=== PATIENT | female | born 1950 | race American Indian/Alaskan Native ===

== ENCOUNTER 2020-04-07 10:34 | Emergency (ER) | payer BC, OTHER ==
--- NOTE | 2020-04-07 10:57 | EDM.PDOC ---
ED HPI GENERAL MEDICAL PROBLEM - General Stated Complaint: AMBULANCE Time Seen by Provider: 04/07/20 10:45 Source of Information: Reports: Patient History Limitations: Reports: No Limitations - History of Present Illness INITIAL COMMENTS - FREE TEXT/NARRATIVE: This 69 yo female patient was brought to the ED by [facility] due to a blood sugar level of 29. EMS reports the patient was initially combative, but was coming around after she was given D10. The patient reports she has been having diarrhea every day for the past 40 days. The patient reports she has further testing starting next week (colonoscopy, EGD, MRI). The patient reports she has been taking her medications as directed. The patient reports she has not had any recent changes in her medications (including Levemir). The patient reports she has been eating and drinking normally. Onset: Today Duration: Minutes:, Resolved Prior to Arrival Location: Reports: Generalized Quality: Reports: Other Severity: Moderate Improves with: Reports: Medication (D10 provided by EMS) Worsens with: Reports: None Context: Reports: Other Associated Symptoms: Reports: No Other Symptoms - Related Data Allergies Allergy/AdvReac Type Severity Reaction Status Date / Time No Known Allergies Allergy Verified 04/07/20 11:13 Home Meds: Home Meds ALPRAZolam [Alprazolam] 0.5 mg PO BID 07/29/19 [History] Alogliptin Benzoate [Alogliptin] 12.5 mg PO DAILY 07/29/19 [History] Aspirin [Halfprin] 81 mg PO DAILY 07/29/19 [History] Fenofibric Acid (Choline) [Fenofibric Acid] 135 mg PO DAILY 07/29/19 [History] Ferrous Gluconate 324 mg PO DAILY 07/29/19 [History] Insulin Detemir [Levemir Flextouch] 25 unit SQ BEDTIME 07/29/19 [History] Labetalol HCl [Labetalol] 100 mg PO BID 07/29/19 [History] Levothyroxine 37.5 mcg PO DAILY 07/29/19 [History] Losartan Potassium 100 mg PO DAILY 07/29/19 [History] Magnesium Oxide 400 mg PO BID 07/29/19 [History] Multivitamin with Minerals [Multiple Vitamin] 1 each PO DAILY 07/29/19 [History] Pioglitazone HCl 15 mg PO DAILY 07/29/19 [History] Potassium Chloride 10 meq PO DAILY 07/29/19 [History] amLODIPine Besylate [Amlodipine Besylate] 10 mg PO DAILY 07/29/19 [History] atorvaSTATin Calcium [Atorvastatin Calcium] 20 mg PO DAILY 07/29/19 [History] cloNIDine HCL [Catapres] 0.1 mg PO BID 07/29/19 [History] hydroCHLOROthiazide [Hydrochlorothiazide] 25 mg PO BID 07/29/19 [History] Past Medical History HEENT History: Reports: Cataract, Other (See Below) Other HEENT History: hypermetropia, presbyopia Gastrointestinal History: Reports: Other (See Below) Other Gastrointestinal History: Occult blood in stool Genitourinary History: Reports: Chronic Renal Insuffiency, Renal Disease Psychiatric History: Reports: Anxiety Endocrine/Metabolic History: Reports: Diabetes, Type II Hematologic History: Reports: Anemia Immunologic History: Reports: None - Infectious Disease History Infectious Disease History: Reports: Chicken Pox, Measles, Mumps Social & Family History - Family History Family Medical History: Noncontributory - Caffeine Use Caffeine Use: Reports: Coffee ED ROS GENERAL - Review of Systems Review Of Systems: Comprehensive ROS is negative, except as noted in HPI. ED EXAM GENERAL NO PERIP PULSE - Physical Exam Exam: See Below Exam Limited By: No Limitations General Appearance: Alert, WD/WN, No Apparent Distress Eye Exam: Bilateral Eye: EOMI, Normal Inspection, PERRL Ears: Normal External Exam, Normal Canal, Hearing Grossly Normal, Normal TMs Nose: Normal Inspection, Normal Mucosa, No Blood Throat/Mouth: Normal Inspection, Normal Lips, Normal Teeth, Normal Gums, Normal Oropharynx, Normal Voice, No Airway Compromise Head: Atraumatic, Normocephalic Neck: Normal Inspection, Supple, Non-Tender, Full Range of Motion Respiratory/Chest: No Respiratory Distress, Lungs Clear, Normal Breath Sounds, No Accessory Muscle Use, Chest Non-Tender Cardiovascular: Normal Peripheral Pulses, Regular Rate, Rhythm, No Edema, No Gallop, No JVD, No Murmur, No Rub GI/Abdominal: Normal Bowel Sounds, Soft, Non-Tender, No Organomegaly, No Distention, No Abnormal Bruit, No Mass (Female) Exam: Deferred Rectal (Female) Exam: Deferred Back Exam: Normal Inspection, Full Range of Motion, NT Extremities: Normal Inspection, Normal Range of Motion, Non-Tender, Normal Capillary Refill, No Pedal Edema Neurological: Alert, Oriented, CN II-XII Intact, Normal Cognition, Normal Gait, Normal Reflexes, No Motor/Sensory Deficits Psychiatric: Normal Affect, Normal Mood Skin Exam: Warm, Dry, Intact, Normal Color, No Rash Lymphatic: No Adenopathy Course - Vital Signs Last Recorded V/S: Last Vital Signs Temp 35.0 C L 04/07/20 12:13 Pulse 56 L 04/07/20 12:13 Resp 17 04/07/20 12:13 BP 143/53 H 04/07/20 12:13 Pulse Ox 100 04/07/20 12:13 - Orders/Labs/Meds Orders: Active Orders 24 hr Category Date Time Status Glucose [Blood Glucose Check, Bedside] [RC] ONETIME Care 04/07/20 10:37 Active Labs: Laboratory Tests 04/07/20 04/07/20 04/07/20 Range/Units 10:41 10:55 10:55 WBC 4.7 L (5.0-10.0) 10^3/uL RBC 3.84 L (4.2-5.4) 10^6/uL Hgb 10.4 L (12.0-16.0) g/dL Hct 33.4 L (37.0-47.0) % MCV 87.0 (80-100) fL MCH 27.1 (27.0-34.0) pg MCHC 31.1 L (33.0-35.0) g/dL Plt Count 400 (150-450) 10^3/uL Neut % (Auto) 75.6 H (42.2-75.2) % Lymph % (Auto) 17.8 L (20.5-50.1) % [place] % (Auto) 5.8 (2-8) % Eos % (Auto) 0.6 L (1.0-3.0) % Baso % (Auto) 0.2 (0.0-1.0) % Sodium 144 (136-145) mmol/L Potassium 3.4 L (3.5-5.1) mmol/L Chloride 108 H (98-107) mmol/L Carbon Dioxide 26 (21-32) mmol/L Anion Gap 13.4 H (7-13) mEq/L BUN 30 H (7-18) mg/dL Creatinine 1.67 H (0.55-1.02) mg/dL Est Cr Clr Drug Dosing 28.92 mL/min Estimated GFR (MDRD) 30 BUN/Creatinine Ratio 18.0 (No establ ref range) Glucose 122 H (74-99) mg/dL POC Glucose 150 H (83-110) mg/dl Calcium 8.8 (8.5-10.1) mg/dL Total Bilirubin 0.4 (0.2-1.0) mg/dL AST 43 H (15-37) U/L ALT 55 (14-59) U/L Alkaline Phosphatase 49 (46-116) U/L Total Protein 7.0 (6.4-8.2) g/dL Albumin 3.3 L (3.4-5.0) g/dL Globulin 3.7 Albumin/Globulin Ratio 0.89 Urine Color (YELLOW) Urine Appearance (CLEAR) Urine pH (5.0-9.0) Ur Specific [place] (1.005-1.030) Urine Protein (NEGATIVE) Urine Glucose (UA) (NEGATIVE) Urine Ketones (NEGATIVE) Urine Occult Blood (NEGATIVE) Urine Nitrite (NEGATIVE) Urine Bilirubin (NEGATIVE) Urine Urobilinogen (0.2-1.0) mg/dL Ur Leukocyte Esterase (NEGATIVE) U Hyaline Cast (Auto) Urine RBC /HPF Urine WBC (0-5/HPF) /HPF Ur Epithelial Cells (NOT SEEN) /HPF Urine Bacteria (0-FEW/HPF) /HPF Urine Opiates Screen (NEGATIVE) Ur Oxycodone Screen (NEGATIVE) Urine Methadone Screen (NEGATIVE) Ur Barbiturates Screen (NEGATIVE) U Tricyclic Antidepress (NEGATIVE) Ur Phencyclidine Scrn (NEGATIVE) Ur Amphetamine Screen (NEGATIVE) U Methamphetamines Scrn (NEGATIVE) Urine MDMA Screen (NEGATIVE) U Benzodiazepines Scrn (NEGATIVE) Urine Cocaine Screen (NEGATIVE) U Marijuana (THC) Screen (NEGATIVE) Ethyl Alcohol < 3 (0) mg/dL 04/07/20 04/07/20 04/07/20 Range/Units 11:19 11:22 11:22 WBC (5.0-10.0) 10^3/uL RBC (4.2-5.4) 10^6/uL Hgb (12.0-16.0) g/dL Hct (37.0-47.0) % MCV (80-100) fL MCH (27.0-34.0) pg MCHC (33.0-35.0) g/dL Plt Count (150-450) 10^3/uL Neut % (Auto) (42.2-75.2) % Lymph % (Auto) (20.5-50.1) % [place] % (Auto) (2-8) % Eos % (Auto) (1.0-3.0) % Baso % (Auto) (0.0-1.0) % Sodium (136-145) mmol/L Potassium (3.5-5.1) mmol/L Chloride (98-107) mmol/L Carbon Dioxide (21-32) mmol/L Anion Gap (7-13) mEq/L BUN (7-18) mg/dL Creatinine (0.55-1.02) mg/dL Est Cr Clr Drug Dosing mL/min Estimated GFR (MDRD) BUN/Creatinine Ratio (No establ ref range) Glucose (74-99) mg/dL POC Glucose 82 L (83-110) mg/dl Calcium (8.5-10.1) mg/dL Total Bilirubin (0.2-1.0) mg/dL AST (15-37) U/L ALT (14-59) U/L Alkaline Phosphatase (46-116) U/L Total Protein (6.4-8.2) g/dL Albumin (3.4-5.0) g/dL Globulin Albumin/Globulin Ratio Urine Color Yellow (YELLOW) Urine Appearance Clear (CLEAR) Urine pH 5.0 (5.0-9.0) Ur Specific [place] 1.025 (1.005-1.030) Urine Protein 100 H (NEGATIVE) Urine Glucose (UA) 100 H (NEGATIVE) Urine Ketones Negative (NEGATIVE) Urine Occult Blood Trace-intact H (NEGATIVE) Urine Nitrite Negative (NEGATIVE) Urine Bilirubin Negative (NEGATIVE) Urine Urobilinogen 0.2 (0.2-1.0) mg/dL Ur Leukocyte Esterase Negative (NEGATIVE) U Hyaline Cast (Auto) Rare Urine RBC 0-5 /HPF Urine WBC 0-5 (0-5/HPF) /HPF Ur Epithelial Cells Many H (NOT SEEN) /HPF Urine Bacteria Few (0-FEW/HPF) /HPF Urine Opiates Screen Negative (NEGATIVE) Ur Oxycodone Screen Negative (NEGATIVE) Urine Methadone Screen Negative (NEGATIVE) Ur Barbiturates Screen Negative (NEGATIVE) U Tricyclic Antidepress Negative (NEGATIVE) Ur Phencyclidine Scrn Negative (NEGATIVE) Ur Amphetamine Screen Negative (NEGATIVE) U Methamphetamines Scrn Negative (NEGATIVE) Urine MDMA Screen Negative (NEGATIVE) U Benzodiazepines Scrn Positive H (NEGATIVE) Urine Cocaine Screen Negative (NEGATIVE) U Marijuana (THC) Screen Negative (NEGATIVE) Ethyl Alcohol (0) mg/dL 04/07/20 04/07/20 Range/Units 12:08 13:00 WBC (5.0-10.0) 10^3/uL RBC (4.2-5.4) 10^6/uL Hgb (12.0-16.0) g/dL Hct (37.0-47.0) % MCV (80-100) fL MCH (27.0-34.0) pg MCHC (33.0-35.0) g/dL Plt Count (150-450) 10^3/uL Neut % (Auto) (42.2-75.2) % Lymph % (Auto) (20.5-50.1) % [place] % (Auto) (2-8) % Eos % (Auto) (1.0-3.0) % Baso % (Auto) (0.0-1.0) % Sodium (136-145) mmol/L Potassium (3.5-5.1) mmol/L Chloride (98-107) mmol/L Carbon Dioxide (21-32) mmol/L Anion Gap (7-13) mEq/L BUN (7-18) mg/dL Creatinine (0.55-1.02) mg/dL Est Cr Clr Drug Dosing mL/min Estimated GFR (MDRD) BUN/Creatinine Ratio (No establ ref range) Glucose (74-99) mg/dL POC Glucose 94 112 H (83-110) mg/dl Calcium (8.5-10.1) mg/dL Total Bilirubin (0.2-1.0) mg/dL AST (15-37) U/L ALT (14-59) U/L Alkaline Phosphatase (46-116) U/L Total Protein (6.4-8.2) g/dL Albumin (3.4-5.0) g/dL Globulin Albumin/Globulin Ratio Urine Color (YELLOW) Urine Appearance (CLEAR) Urine pH (5.0-9.0) Ur Specific [place] (1.005-1.030) Urine Protein (NEGATIVE) Urine Glucose (UA) (NEGATIVE) Urine Ketones (NEGATIVE) Urine Occult Blood (NEGATIVE) Urine Nitrite (NEGATIVE) Urine Bilirubin (NEGATIVE) Urine Urobilinogen (0.2-1.0) mg/dL Ur Leukocyte Esterase (NEGATIVE) U Hyaline Cast (Auto) Urine RBC /HPF Urine WBC (0-5/HPF) /HPF Ur Epithelial Cells (NOT SEEN) /HPF Urine Bacteria (0-FEW/HPF) /HPF Urine Opiates Screen (NEGATIVE) Ur Oxycodone Screen (NEGATIVE) Urine Methadone Screen (NEGATIVE) Ur Barbiturates Screen (NEGATIVE) U Tricyclic Antidepress (NEGATIVE) Ur Phencyclidine Scrn (NEGATIVE) Ur Amphetamine Screen (NEGATIVE) U Methamphetamines Scrn (NEGATIVE) Urine MDMA Screen (NEGATIVE) U Benzodiazepines Scrn (NEGATIVE) Urine Cocaine Screen (NEGATIVE) U Marijuana (THC) Screen (NEGATIVE) Ethyl Alcohol (0) mg/dL Departure - Departure Time of Disposition: 13:06 Disposition: Home, Self-Care 01 Condition: Fair Clinical Impression: Hypoglycemia - Discharge Information *PRESCRIPTION DRUG MONITORING PROGRAM REVIEWED*: Not Applicable *COPY OF PRESCRIPTION DRUG MONITORING REPORT IN PATIENT [place]: Not Applicable Instructions: Hypoglycemia, [id number] Forms: ED Department Discharge Care Plan Goals: The patient was advised of the examination and lab results during the visit. The patient was given D10 by EMS and her blood sugar has stabilized throughout the visit. The patient was encouraged to take her medications as directed and follow-up with the specialist care as scheduled. If the patient has any additional symptoms or concerns, the patient should either return to the emergency department or visit her primary care facility. Sepsis Event Note (ED) - Evaluation Sepsis Screening Result: No Definite Risk - Focused Exam Vital Signs: Vital Signs Temp Pulse Resp BP Pulse Ox 04/07/20 12:13 35.0 C L 56 L 17 143/53 H 100 04/07/20 10:46 30 C L 56 L 18 149/62 H 100 - My Orders Last 24 Hours: My Active Orders 04/07/20 10:37 Glucose [Blood Glucose Check, Bedside] [RC] ONETIME - Assessment/Plan Last 24 Hours: My Active Orders 04/07/20 10:37 Glucose [Blood Glucose Check, Bedside] [RC] ONETIME
[2020-04-07 11:25] LABS: ANION GAP 13.4 mEq/L (7-13); CHLORIDE,CL 108 mmol/L (98-107); SODIUM,NA 144 mmol/L (136-145)
== END 2020-04-07 13:16 | disposition home or self-care (01) ==
LOC: DL.ED 10:34
DX: E11.649 Type 2 diabetes mellitus with hypoglycemia without coma (principal); N18.9 Chronic kidney disease, unspecified; F41.9 Anxiety disorder, unspecified; Z79.82 Long term (current) use of aspirin; Z79.4 Long term (current) use of insulin; Z79.899 Other long term (current) drug therapy
CPT/HCPCS: 36415; 80053; 80305-QW; 80307; 81001; 82962; 85025; 99285

== ENCOUNTER 2023-01-07 07:07 | Day surgery (SDC) | payer OTHER ==
[~2023-01-07 07:07] MED LIST: Dextrose 5%-0.45% NaCl 1,000 ML IV SCH; Sodium Chloride 0.9% 10 ML Syringe FLUSH PRN; Sodium Chloride 0.9% 10 ML Syringe FLUSH SCH
[2023-01-07] MEDS ORDERED: fentaNYL 100 MCG/2 ML SDV ONE (08:03)
[2023-01-07] MEDS ORDERED: Midazolam 1 MG/ML 2 ML SDV ONE (08:03)
[2023-01-07] MEDS ORDERED: fentaNYL 100 MCG/2 ML SDV IV ONE ×2 (08:08→08:09)
[2023-01-07] MEDS ORDERED: Midazolam 1 MG/ML 2 ML SDV IV ONE ×3 (08:09→08:11)
== END 2023-01-07 09:44 | disposition home or self-care (01) ==
LOC: DL.ENDO 07:07
PROVIDERS: ATTEND Internal Medicine Gastroenterology
DX: D50.0 Iron deficiency anemia secondary to blood loss (chronic) (principal); I12.9 Hypertensive chronic kidney disease with stage 1 through stage 4 chronic kidney disease, or unspecified chronic kidney disease; E11.22 Type 2 diabetes mellitus with diabetic chronic kidney disease; N18.9 Chronic kidney disease, unspecified; E03.9 Hypothyroidism, unspecified; F41.1 Generalized anxiety disorder
CPT/HCPCS: 82947; 87077; J2250; J3010; J7042

== ENCOUNTER 2023-02-06 06:29 | Day surgery (SDC) | payer OTHER ==
[2023-02-06] MEDS ORDERED: Midazolam 1 MG/ML 2 ML SDV ONE (06:33)
[2023-02-06] MEDS ORDERED: fentaNYL 100 MCG/2 ML SDV ONE (06:33)
[2023-02-06] MEDS ORDERED: fentaNYL 100 MCG/2 ML SDV IV ONE ×4 (07:07→07:19)
[2023-02-06] MEDS ORDERED: Midazolam 1 MG/ML 2 ML SDV IV ONE ×6 (07:08→07:16)
== END 2023-02-06 08:35 | disposition home or self-care (01) ==
LOC: DL.ENDO 06:29
PROVIDERS: ATTEND Internal Medicine Gastroenterology
DX: K55.20 Angiodysplasia of colon without hemorrhage (principal); I12.9 Hypertensive chronic kidney disease with stage 1 through stage 4 chronic kidney disease, or unspecified chronic kidney disease; E11.22 Type 2 diabetes mellitus with diabetic chronic kidney disease; N18.9 Chronic kidney disease, unspecified; E03.9 Hypothyroidism, unspecified; F41.1 Generalized anxiety disorder; K27.9 Peptic ulcer, site unspecified, unspecified as acute or chronic, without hemorrhage or perforation; E55.9 Vitamin D deficiency, unspecified; D50.0 Iron deficiency anemia secondary to blood loss (chronic); N25.81 Secondary hyperparathyroidism of renal origin; Z90.09 Acquired absence of other part of head and neck
CPT/HCPCS: 45382; J2250; J3010; J7042

== ENCOUNTER 2023-04-13 10:37 | Emergency (ER) | payer OTHER ==
[2023-04-13 11:02] LABS: MEAN CORPUSCULAR HEMOGLOBIN 31.2 pg (27.0-34.0); MEAN CORPUSCULAR HGB CONC 31.2 g/dL (33.0-35.0); PLATELET COUNT,PLT 358 10^3/uL (150-450); RED BLOOD CELL COUNT 1.54 10^6/uL (4.2-5.4); WHITE BLOOD CELL COUNT,WBC 5.1 10^3/uL (5.0-10.0)
[2023-04-13 11:11] LABS: HEMATOCRIT 15.4 % (37.0-47.0); HEMOGLOBIN 4.8 g/dL (12.0-16.0)
[2023-04-13 11:12] LABS: BASOPHILS PERCENT AUTO 0.6 % (0.0-1.0); LYMPHOCYTES PERCENT AUTO 19.6 % (20.5-50.1); MONOCYTES PERCENT AUTO 5.7 % (2-8); NEUTROPHILS PERCENT AUTO 73.1 % (42.2-75.2)
[2023-04-13 11:26] LABS: APPEARANCE,URINE CLEAR (CLEAR); BILIRUBIN,URINE NEGATIVE (NEGATIVE); COLOR,URINE YELLOW (YELLOW); GLUCOSE,URINE 100 (NEGATIVE); KETONES,URINE NEGATIVE (NEGATIVE); LEUKOCYTE ESTERASE,URINE NEGATIVE (NEGATIVE); NITRITE,URINE NEGATIVE (NEGATIVE); OCCULT BLOOD,URINE TRACE-INTACT (NEGATIVE); PH,URINE 5.5 (5.0-9.0); PROTEIN,URINE >=300 (NEGATIVE); UROBILINOGEN,URINE 0.2 mg/dL (0.2-1.0)
[2023-04-13 11:27] LABS: ALANINE AMINOTRANSFERASE,ALT 20 U/L (14-59); ALBUMIN 2.6 g/dL (3.4-5.0); ALKALINE PHOSPHATASE 38 U/L (46-116); ANION GAP 13.1 mEq/L (7-13); ASPARTATE AMNIOTRANSFERASE,AST 21 U/L (15-37); BILIRUBIN TOTAL 0.4 mg/dL (0.2-1.0); BLOOD UREA NITROGEN,BUN 91 mg/dL (7-18); BUN/CREATININE RATIO 19.7 (No establ ref range); CARBON DIOXIDE,CO2 27 mmol/L (21-32); CHLORIDE,CL 108 mmol/L (98-107); CREATININE 4.62 mg/dL (0.55-1.02); EST CRCL DRUG DOSING (CG) 9.23 mL/min; GLUCOSE RANDOM 203 mg/dL (70-99); LIPASE 410 U/L (73-393); MAGNESIUM 2.7 mg/dL (1.8-2.4); POTASSIUM,K 4.1 mmol/L (3.5-5.1); PROTEIN TOTAL,TP 5.3 g/dL (6.4-8.2); SODIUM,NA 144 mmol/L (136-145)
[2023-04-13 11:30] LABS: LACTIC ACID 0.8 mmol/L (0.4-2.0)
[2023-04-13 11:31] LABS: AMPHETAMINES,URINE NEGATIVE (NEGATIVE); BARBITURATES,URINE NEGATIVE (NEGATIVE); BENZODIAZEPINE,URINE NEGATIVE (NEGATIVE); MDMA (ECSTASY), URINE POSITIVE (NEGATIVE); METHADONE,URINE NEGATIVE (NEGATIVE); METHAMPHETAMINES,URINE NEGATIVE (NEGATIVE); OPIATES,URINE NEGATIVE (NEGATIVE); OXYCODONE,URINE NEGATIVE (NEGATIVE); PHENCYCLIDINE,URINE NEGATIVE (NEGATIVE); TCA,URINE NEGATIVE (NEGATIVE)
[2023-04-13 11:32] LABS: A/G RATIO 0.96; C-REACTIVE PROTEIN < 0.2 mg/dL (0.0-0.9); ESTIMATED GFR 9 mL/min (>=60); ETHANOL BLOOD MEDICAL < 3 mg/dL (0)
[2023-04-13 11:42] LABS: BACTERIA,URINE FEW /HPF (0-FEW/HPF); EPITHELIAL CELLS,URINE FEW /HPF (NOT SEEN); HYALINE CASTS,URINE RARE; MUCUS,URINE FEW /LPF (NOT SEEN); RBC,URINE 0-5 /HPF (0-5); WBC,URINE 0-5 /HPF (0-5/HPF)
[2023-04-13] MEDS ORDERED: Pantoprazole 40 MG Vial IVPUSH ONE (11:46)
[2023-04-13 11:49] LABS: EOSINOPHILS PERCENT MAN 1 % (1-3); HYPOCHROMASIA 3+ MARKED; LYMPHOCYTES PERCENT MAN 21 % (20-50); MONOCYTES PERCENT MAN 2 % (2-8); SEG NEUTROPHILS PERCENT MAN 76 % (42-75)
[2023-04-13 11:51] LABS: STOMATOCYTES FEW
[2023-04-13] MEDS ORDERED: Pantoprazole 40 MG in Sodium Chloride 0.9% 100 ML IV SCH ×2 (12:00→16:45)
[2023-04-13 12:03] LABS: PROTHROMBIN TIME 10.2 SEC (9.0-12.0); PTT,PARTIAL THROMBOPLSTIN TIME 22.7 SEC (22.0-34.0)
== END 2023-04-13 17:07 ==
LOC: DL.ED 10:37
DX: I12.0 Hypertensive chronic kidney disease with stage 5 chronic kidney disease or end stage renal disease (principal); E11.22 Type 2 diabetes mellitus with diabetic chronic kidney disease; N18.5 Chronic kidney disease, stage 5; N17.9 Acute kidney failure, unspecified; D63.1 Anemia in chronic kidney disease; R19.5 Other fecal abnormalities; F17.210 Nicotine dependence, cigarettes, uncomplicated; Z79.82 Long term (current) use of aspirin; Z79.4 Long term (current) use of insulin; Z79.899 Other long term (current) drug therapy
CPT/HCPCS: 36415; 36430; 71045; 80053; 80305; 80307; 81001; 82272; 83605; 83690; 83735; 83880; 85025; 85610; 85730; 86140; 86850; 86900; 86901; 86920; 86922; 96365; 96366; 99285; C9113; J3490; P9016

== ENCOUNTER 2023-09-01 09:28 | Observation (INO) | payer OTHER ==
[2023-09-01] MEDS ORDERED: Acetaminophen 325 MG Tab PO ONE (10:00)
[2023-09-01] MEDS ORDERED: Sodium Chloride 0.9% 10 ML Syringe FLUSH PRN (10:00)
[2023-09-01] MEDS ORDERED: Bumetanide 1 MG/4 ML MDV IVPUSH ONE (10:04)
[2023-09-01 10:11] LABS: BASOPHILS PERCENT AUTO 0.2 % (0.0-1.0); EOSINOPHILS PERCENT AUTO 1.7 % (1.0-3.0); LYMPHOCYTES PERCENT AUTO 22.4 % (20.5-50.1); MEAN CORPUSCULAR HEMOGLOBIN 31.4 pg (27.0-34.0); MEAN CORPUSCULAR HGB CONC 30.4 g/dL (33.0-35.0); MEAN CORPUSCULAR VOLUME 103.2 fL (80-100); MONOCYTES PERCENT AUTO 5.7 % (2-8); PLATELET COUNT,PLT 375 10^3/uL (150-450); RED BLOOD CELL COUNT 1.85 10^6/uL (4.2-5.4); WHITE BLOOD CELL COUNT,WBC 6.3 10^3/uL (5.0-10.0)
[2023-09-01 10:15] LABS: HEMATOCRIT 19.1 % (37.0-47.0); HEMOGLOBIN 5.8 g/dL (12.0-16.0); INR 0.9 (0.9-1.2); PROTHROMBIN TIME 9.5 SEC (9.0-12.0); PTT,PARTIAL THROMBOPLSTIN TIME 26.7 SEC (22.0-34.0)
[2023-09-01 10:18] LABS: ALBUMIN 2.8 g/dL (3.4-5.0); ANION GAP 8.6 mEq/L (7-13); BILIRUBIN TOTAL 0.3 mg/dL (0.2-1.0); BUN/CREATININE RATIO 8.4 (No establ ref range); CALCIUM 7.9 mg/dL (8.5-10.1); CREATININE 1.54 mg/dL (0.55-1.02); EST CRCL DRUG DOSING (CG) 29.55 mL/min; POTASSIUM,K 3.6 mmol/L (3.5-5.1); PROTEIN TOTAL,TP 6.5 g/dL (6.4-8.2)
[2023-09-01 10:19] LABS: A/G RATIO 0.76
[2023-09-01 10:21] LABS: LACTIC ACID 1.5 mmol/L (0.4-2.0)
[2023-09-01] MEDS ORDERED: Pantoprazole 40 MG Vial IVPUSH ONE (10:21)
[2023-09-01] MEDS ORDERED: Pantoprazole 40 MG Vial ONE (10:27)
[2023-09-01] MEDS ORDERED: Pantoprazole 40 MG in Sodium Chloride 0.9% 100 ML IV SCH (10:30)
[2023-09-01] MEDS ORDERED: Ondansetron 4 MG/2 ML SDV IVPUSH PRN (13:53)
[2023-09-01] MEDS ORDERED: Acetaminophen 325 MG Tab PO PRN (13:53)
[2023-09-01] MEDS ORDERED: HYDROmorphone 0.5 MG/0.5 ML Syringe IVPUSH PRN (13:53)
[2023-09-01] MEDS ORDERED: Acetaminophen/HYDROcodone 325-10 MG Tab PO PRN (13:53)
[2023-09-01] MEDS ORDERED: Albuterol/Ipratropium 3.0-0.5 MG/3 ML Neb Soln NEB PRN (13:53)
[2023-09-01] MEDS ORDERED: Zolpidem 5 MG Tab PO PRN (13:53)
[2023-09-01] MEDS ORDERED: Glucagon,Human Recombinant 1 MG Vial IM PRN (13:57)
[2023-09-01] MEDS ORDERED: 50% Dextrose in Water 50 ML Syringe IVPUSH PRN (13:57)
[2023-09-01] MEDS: Insulin Lispro 100 Units/ML 3 ML Vial SUBCUT SCH ×2 (16:55→21:24)
[2023-09-01] MEDS: Sucralfate Suspension 1 GM/10 ML Cup PO SCH (17:43)
[2023-09-01] MEDS: Dextrose 5%-0.9% NaCl 1,000 ML IV SCH (17:55)
[2023-09-01 18:54] LABS: HEMATOCRIT 24.9 % (37.0-47.0)
[2023-09-01] MEDS: Pantoprazole 40 MG Vial IVPUSH SCH (21:30)
[2023-09-02] MEDS: Sucralfate Suspension 1 GM/10 ML Cup PO SCH ×4 (01:15→17:07)
[2023-09-02] MEDS: Insulin Lispro 100 Units/ML 3 ML Vial SUBCUT SCH ×3 (01:21→13:34)
[2023-09-02 06:53] LABS: BASOPHILS PERCENT AUTO 0.3 % (0.0-1.0); HEMOGLOBIN 8.6 g/dL (12.0-16.0); LYMPHOCYTES PERCENT AUTO 23.5 % (20.5-50.1); MEAN CORPUSCULAR HEMOGLOBIN 30.9 pg (27.0-34.0); MEAN CORPUSCULAR HGB CONC 31.9 g/dL (33.0-35.0); MEAN CORPUSCULAR VOLUME 97.1 fL (80-100); MONOCYTES PERCENT AUTO 9.4 % (2-8); NEUTROPHILS PERCENT AUTO 65.8 % (42.2-75.2); PLATELET COUNT,PLT 302 10^3/uL (150-450); RED BLOOD CELL COUNT 2.78 10^6/uL (4.2-5.4)
[2023-09-02 06:58] LABS: PERCENT FE SATURATION 18.5 % (20.0-50.0)
[2023-09-02 07:02] LABS: ALBUMIN 2.6 g/dL (3.4-5.0); ANION GAP 12.2 mEq/L (7-13); BILIRUBIN TOTAL 0.4 mg/dL (0.2-1.0); BUN/CREATININE RATIO 7.3 (No establ ref range); CALCIUM 8.3 mg/dL (8.5-10.1); CREATININE 2.88 mg/dL (0.55-1.02); EST CRCL DRUG DOSING (CG) 15.8 mL/min; POTASSIUM,K 4.2 mmol/L (3.5-5.1); PROTEIN TOTAL,TP 5.7 g/dL (6.4-8.2)
[2023-09-02 07:05] LABS: A/G RATIO 0.84
[2023-09-02] MEDS: Pantoprazole 40 MG Vial IVPUSH SCH ×2 (08:41→20:24)
[2023-09-02 12:07] LABS: HEMOGLOBIN 8.2 g/dL (12.0-16.0)
[2023-09-02] MEDS ORDERED: Iron Polysaccharides Complex 150 MG Cap PO ONE (17:00)
[2023-09-02] MEDS: Dextrose 5%-0.9% NaCl 1,000 ML IV SCH (20:31)
[2023-09-02] MEDS ORDERED: Multivitamins with Iron/Calcium/Folic Acid/Minerals Tab PO SCH (21:00)
[2023-09-02] MEDS ORDERED: Insulin Lispro 100 Units/ML 3 ML Vial SUBCUT SCH (21:00)
[2023-09-03] MEDS: Sucralfate Suspension 1 GM/10 ML Cup PO SCH (00:16)
== END 2023-09-03 05:00 | disposition home or self-care (01) ==
LOC: DL.ED 09:28 → DL.MS 12:34
PROVIDERS: ADMIT Internal Medicine; ATTEND Internal Medicine
DX: D50.9 Iron deficiency anemia, unspecified (principal); R19.5 Other fecal abnormalities; D53.9 Nutritional anemia, unspecified; E11.22 Type 2 diabetes mellitus with diabetic chronic kidney disease; I12.0 Hypertensive chronic kidney disease with stage 5 chronic kidney disease or end stage renal disease; N18.6 End stage renal disease; D63.1 Anemia in chronic kidney disease; E11.65 Type 2 diabetes mellitus with hyperglycemia; E88.09 Other disorders of plasma-protein metabolism, not elsewhere classified; E78.00 Pure hypercholesterolemia, unspecified; E21.3 Hyperparathyroidism, unspecified; F17.210 Nicotine dependence, cigarettes, uncomplicated; Z79.82 Long term (current) use of aspirin; Z79.899 Other long term (current) drug therapy; Z90.89 Acquired absence of other organs; Z90.49 Acquired absence of other specified parts of digestive tract; Z79.4 Long term (current) use of insulin
CPT/HCPCS: 36415; 36430; 80053; 82272; 82947; 83540; 83550; 83605; 83735; 83880; 85014; 85018; 85025; 85610; 85730; 86850; 86900; 86901; 86920; 86922; 99285; A9270; C9113; J1815; J3490; J7042; P9016; 96365; 96375; 96376; 99232; 99238; G0378

== ENCOUNTER 2023-11-09 07:15 | Emergency (ER) | payer OTHER ==
[2023-11-09 07:57] LABS: BASOPHILS PERCENT AUTO 0.4 % (0.0-1.0); EOSINOPHILS PERCENT AUTO 1.4 % (1.0-3.0); LYMPHOCYTES PERCENT AUTO 22.2 % (20.5-50.1); MONOCYTES PERCENT AUTO 6.5 % (2-8); NEUTROPHILS PERCENT AUTO 69.5 % (42.2-75.2); PLATELET COUNT,PLT 323 10^3/uL (150-450); RED BLOOD CELL COUNT 1.93 10^6/uL (4.2-5.4); WHITE BLOOD CELL COUNT,WBC 8.3 10^3/uL (5.0-10.0)
[2023-11-09 08:04] LABS: HEMOGLOBIN 5.6 g/dL (12.0-16.0)
[2023-11-09 08:05] LABS: HEMATOCRIT 19.3 % (37.0-47.0)
[2023-11-09] MEDS: Pantoprazole 40 MG in Sodium Chloride 0.9% 100 ML IV SCH (08:12)
[2023-11-09] MEDS: Sodium Chloride 0.9% 10 ML Syringe FLUSH PRN (08:13)
[2023-11-09 08:17] LABS: PROTHROMBIN TIME 10.4 SEC (9.0-12.0); PTT,PARTIAL THROMBOPLSTIN TIME 22.7 SEC (22.0-34.0)
[2023-11-09 08:18] LABS: ALBUMIN 2.9 g/dL (3.4-5.0); ANION GAP 15.8 mEq/L (7-13); BILIRUBIN TOTAL 0.3 mg/dL (0.2-1.0); CALCIUM 8.7 mg/dL (8.5-10.1); EST CRCL DRUG DOSING (CG) 8.43 mL/min; POTASSIUM,K 4.8 mmol/L (3.5-5.1); PROTEIN TOTAL,TP 6.3 g/dL (6.4-8.2)
[2023-11-09 08:21] LABS: LACTIC ACID 1.3 mmol/L (0.4-2.0)
[2023-11-09 08:23] LABS: A/G RATIO 0.85; CREATININE 5.19 mg/dL (0.55-1.02)
[2023-11-09] MEDS: Acetaminophen 325 MG Tab PO ONE (08:43)
[2023-11-09 10:04] LABS: APPEARANCE,URINE CLEAR (CLEAR); BILIRUBIN,URINE NEGATIVE (NEGATIVE); COLOR,URINE YELLOW (YELLOW); GLUCOSE,URINE 100 (NEGATIVE); KETONES,URINE NEGATIVE (NEGATIVE); LEUKOCYTE ESTERASE,URINE NEGATIVE (NEGATIVE); NITRITE,URINE NEGATIVE (NEGATIVE); OCCULT BLOOD,URINE MODERATE (NEGATIVE); PH,URINE 7.5 (5.0-9.0); PROTEIN,URINE 100 (NEGATIVE); UROBILINOGEN,URINE 0.2 mg/dL (0.2-1.0)
[2023-11-09 10:24] LABS: EPITHELIAL CELLS,URINE MODERATE /HPF (NOT SEEN); RBC,URINE 0-5 /HPF (0-5); WBC,URINE 0-5 /HPF (0-5/HPF)
[2023-11-09 10:25] LABS: AMORPHOUS SEDIMENT,URINE OCCASIONAL /HPF (NOT SEEN); BACTERIA,URINE FEW /HPF (0-FEW/HPF); MUCUS,URINE NOT SEEN /LPF (NOT SEEN)
[2023-11-09] MEDS: Furosemide 40 MG/4 ML VIAL ONE (12:49)
[2023-11-09] MEDS: Furosemide 40 MG/4 ML VIAL IV ONE (13:12)
== END 2023-11-09 16:35 ==
LOC: DL.ED 07:15
DX: K92.2 Gastrointestinal hemorrhage, unspecified (principal); D64.89 Other specified anemias; I12.0 Hypertensive chronic kidney disease with stage 5 chronic kidney disease or end stage renal disease; E11.22 Type 2 diabetes mellitus with diabetic chronic kidney disease; N18.6 End stage renal disease; Z99.2 Dependence on renal dialysis; E78.00 Pure hypercholesterolemia, unspecified; Z79.82 Long term (current) use of aspirin; Z79.899 Other long term (current) drug therapy; Z90.49 Acquired absence of other specified parts of digestive tract
CPT/HCPCS: 36415; 36430; 80053; 81001; 83605; 83880; 85025; 85610; 85730; 86850; 86900; 86901; 86920; 86922; 96365; 96366; 96375; 99285; A9270; C9113; J1940; J3490; P9016

== ENCOUNTER 2024-06-30 09:07 | Emergency (ER) | payer OTHER ==
[2024-06-30 09:50] LABS: BASOPHILS PERCENT AUTO 0.6 % (0.0-1.0); EOSINOPHILS PERCENT AUTO 1.1 % (1.0-3.0); HEMATOCRIT 23.3 % (37.0-47.0); LYMPHOCYTES PERCENT AUTO 26.2 % (20.5-50.1); MEAN CORPUSCULAR HEMOGLOBIN 30.4 pg (27.0-34.0); MEAN CORPUSCULAR VOLUME 101.3 fL (80-100); MONOCYTES PERCENT AUTO 6.9 % (2-8); NEUTROPHILS PERCENT AUTO 65.2 % (42.2-75.2); PLATELET COUNT,PLT 385 10^3/uL (150-450); WHITE BLOOD CELL COUNT,WBC 7.2 10^3/uL (5.0-10.0)
[2024-06-30] MEDS: Pantoprazole 40 MG in Sodium Chloride 0.9% 100 ML IV SCH (09:57)
[2024-06-30 10:01] LABS: ALBUMIN 3.3 g/dL (3.4-5.0); ANION GAP 10.8 mEq/L (7-13); BILIRUBIN TOTAL 0.3 mg/dL (0.2-1.0); BUN/CREATININE RATIO 5.8 (No establ ref range); CALCIUM 8.6 mg/dL (8.5-10.1); CREATININE 1.89 mg/dL (0.55-1.02); EST CRCL DRUG DOSING (CG) 22.79 mL/min; POTASSIUM,K 3.8 mmol/L (3.5-5.1); PROTEIN TOTAL,TP 7.2 g/dL (6.4-8.2)
[2024-06-30 10:02] LABS: A/G RATIO 0.85
[2024-06-30 10:23] LABS: PTT,PARTIAL THROMBOPLSTIN TIME 23.2 SEC (22.0-34.0)
[2024-06-30] MEDS: Morphine 4 MG/ML Syringe IVPUSH ONE (13:09)
== END 2024-06-30 14:00 ==
LOC: DL.ED 09:07
DX: D64.9 Anemia, unspecified (principal); K92.2 Gastrointestinal hemorrhage, unspecified; E78.00 Pure hypercholesterolemia, unspecified; I12.9 Hypertensive chronic kidney disease with stage 1 through stage 4 chronic kidney disease, or unspecified chronic kidney disease; N18.9 Chronic kidney disease, unspecified; E11.22 Type 2 diabetes mellitus with diabetic chronic kidney disease; Z79.899 Other long term (current) drug therapy; Z79.82 Long term (current) use of aspirin; Z99.2 Dependence on renal dialysis
CPT/HCPCS: 36415; 36430; 80053; 82272; 84484; 85025; 85610; 85730; 86850; 86900; 86901; 86920; 86922; 93005; 96365; 96366; 99285; J2470; J3490; P9016